=== PATIENT | male | born 1945 | race Caucasian/White ===

== ENCOUNTER 2018-05-22 22:14 | Inpatient (IN) ==
[2018-05-22] MEDS ORDERED: LEVOFLOXACIN INJ 750 MG in PREMIX 1 EACH IV STA (22:47)
[2018-05-22] MEDS ORDERED: VECURONIUM 10 MG VIAL IV ONE (22:57)
[2018-05-22 23:00] LABS: Basophils % 0.1 % (0.0-0.8); Hematocrit 37.9 VOL% (42.0-52.0); Hemoglobin 12.2 GM/DL (14.0-18.0); Immature Granulocytes % 1.3 %; Immature Granulocytes Absolute 0.31 #; Lymphocytes # 1.1 10*3/uL (1.4-4.0); Lymphocytes % 4.7 % (21.2-54.2); Mean Corpuscular HGB Conc 32.2 GM/DL (32-36); Mean Corpuscular Hemoglobin 32 PG (27-34); Mean Corpuscular Volume 100.3 FL (87-102); Mean Platelet Volume 10.5 FL (9.6-12.0); Monocytes # 0.9 10*3/uL (0.11-0.8); Monocytes % 3.6 % (1.7-12.7); Neutrophils # 21.3 10*3/uL (1.4-7.4); Neutrophils % 90.3 % (38.7-73.9); Platelet Count 233 T/CUMM (130-400); Red Blood Count 3.78 MC/CUMM (3.8-5.5); Red Cell Distribution Width 12.5 % (9.3-17.3); White Blood Count 23.6 T/CUMM (4-12)
[2018-05-22] MEDS ORDERED: FUROSEMIDE 40 MG/4 ML VIAL IV STA (23:05)
[2018-05-22 23:08] LABS: INR 1.1; PT Patient Result 11.5 SECS; Partial Thromboplastin Time < 21.0 SECS (0-40)
[2018-05-22 23:13] LABS: ABG Base Excess -3.8 MMOL/L (-2.5-2.5); ABG HCO3 21.2 MMOL/L (20-26); ABG PCO2 43.1 MM HG (35-48); ABG PH 7.321 (7.35-7.45); ABG PO2 81.5 MM HG (80-95); ABG TCO2 19.8 MMOL/L (23-27); Allen Test Positive; Pt O2 Delivery Device Ventilator
[2018-05-22 23:15] LABS: Apearance,Urine CLOUDY (Clear); Bilirubin,Urine Negative (Negative); Blood, Urine Moderate mg/dL (Negative); Calcium Oxalate Crystals,Urine Occasional /HPF (Few); Glucose,Urine (UA) 150 mg/dL (Negative); Granular Casts,Urine 64 /LPF (0-1); Hyaline Casts,Urine 78 /LPF (0-3); Ketones,Urine 5 mg/dL (Negative); Mucus,Urine Few /LPF (Occasional); Nitrite,Urine Negative (Negative); Protein,Urine >=500 MG/DL; RBC,Urine 120 /HPF (0-4); Squamous Epithelial Cell,Urine Occasional /HPF (0-10); Urine Color Amber (Yellow); Urine Specific Gravity 1.019 (1.001-1.035); WBC,Urine 48 /HPF (0-6)
[2018-05-22 23:19] LABS: Albumin 3.5 G/DL (3.4-5.0); Bilirubin,Total 0.8 MG/DL (0.2-1.0); CKMB % 3.1 %; Calcium 8.3 MG/DL (8.5-10.1); Osmolality,Calculated 295.3 MOS/KG (273-304); Potassium 3.7 MMOL/L (3.5-5.1); Total Protein 7.2 G/DL (6.4-8.3)
[2018-05-22 23:20] LABS: Troponin I 0.734 NG/ML (0.00-0.045)
[2018-05-22 23:24] LABS: Barbiturates Screen,Urine Negative (Negative); Benzodiazepines Screen,Urine Positive (Negative); Cannabinoid Screen,Urine Negative (Negative); Opiate Screen,Urine Positive (Negative); Phencyclidine Screen,Urine Negative (Negative)
[2018-05-22 23:53] LABS: Lymphocytes 5 % (20-55); Myelocytes 1 %; Platelet Estimate Normal; Segmented Neutrophils 90 % (50-85); Total Cells Counted 100
[2018-05-23] MEDS ORDERED: hydrALAZINE 20 MG/1 ML VIAL ONE (00:24)
[2018-05-23] MEDS ORDERED: hydrALAZINE 20 MG/1 ML VIAL IV STA (00:31)
[2018-05-23] MEDS ORDERED: ALBUTEROL 2.5 MG/3 ML NEB RESP TX PRN (00:58)
[2018-05-23] MEDS ORDERED: ONDANSETRON 4 MG/2 ML VIAL IV PRN (00:58)
[2018-05-23] MEDS ORDERED: SODIUM CHLORIDE 0.9% 100 ML IV ONE (01:04)
[2018-05-23] MEDS: cefTRIAXone 1,000 MG in SYRINGE 1 EACH IV SCH (01:09)
[2018-05-23] MEDS ORDERED: PANTOPRAZOLE 40 MG VIAL IV ONE (01:42)
[2018-05-23] MEDS: PANTOPRAZOLE 40 MG VIAL IV SCH ×2 (01:52→09:25)
[2018-05-23] MEDS: ENOXAPARIN 80 MG/0.8 ML SYRINGE SUBCUT SCH ×2 (01:52→13:38)
[2018-05-23] MEDS: hydrALAZINE 20 MG/1 ML VIAL IV PRN (02:30)
[2018-05-23] MEDS ORDERED: HEPARIN/NACL 0.9% 2 UNITS/ML 500 ML IV ONE (03:10)
[2018-05-23] MEDS ORDERED: PROPOFOL 1,000 MG/100 ML BOTTLE IV ONE (03:14)
[2018-05-23] MEDS: PROPOFOL 1,000 MG/100 ML BOTTLE IV SCH ×2 (03:20→11:19)
[2018-05-23] MEDS ORDERED: fentaNYL 100 MCG/2 ML VIAL IV ONE (03:24)
[2018-05-23] MEDS ORDERED: CISATRACURIUM 10 MG/5 ML VIAL IV ONE (03:26)
[2018-05-23] MEDS ORDERED: MEPERIDINE 25 MG/1 ML VIAL IV PRN (03:48)
[2018-05-23] MEDS ORDERED: POTASSIUM CHLORIDE RIDER 100 ML IV PRN (03:50)
[2018-05-23] MEDS: CISATRACURIUM 200 MG in SODIUM CHLORIDE 0.9% 180 ML IV SCH ×2 (04:17→16:30)
[2018-05-23] MEDS: INSULIN REGULAR 100 UNIT/ML IV SCH ×5 (04:18→20:35)
[2018-05-23] MEDS: MINERAL OIL/PETROLATUM OPH OINT 3.5 GM TUBE BOTH EYES SCH ×4 (04:18→21:51)
[2018-05-23] MEDS: VANCOMYCIN INJ 1,250 MG in SODIUM CHLORIDE 0.9% 250 ML IV SCH ×2 (04:27→15:45)
[2018-05-23] MEDS: AZITHROMYCIN INJ 500 MG in SODIUM CHLORIDE 0.9% 250 ML IV SCH (04:27)
[2018-05-23 04:39] LABS: Basophils % 0.1 % (0.0-0.8); Hematocrit 42.3 VOL% (42.0-52.0); Hemoglobin 13.7 GM/DL (14.0-18.0); Immature Granulocytes % 0.9 %; Immature Granulocytes Absolute 0.23 #; Lymphocytes # 0.4 10*3/uL (1.4-4.0); Lymphocytes % 1.3 % (21.2-54.2); Mean Corpuscular HGB Conc 32.4 GM/DL (32-36); Mean Corpuscular Hemoglobin 32 PG (27-34); Mean Corpuscular Volume 99.5 FL (87-102); Mean Platelet Volume 11.1 FL (9.6-12.0); Monocytes # 1.2 10*3/uL (0.11-0.8); Monocytes % 4.6 % (1.7-12.7); Neutrophils # 24.5 10*3/uL (1.4-7.4); Neutrophils % 93.1 % (38.7-73.9); Platelet Count 285 T/CUMM (130-400); Red Blood Count 4.25 MC/CUMM (3.8-5.5); Red Cell Distribution Width 12.3 % (9.3-17.3); White Blood Count 26.3 T/CUMM (4-12)
[2018-05-23 04:43] LABS: INR 1.1; PT Patient Result 12.4 SECS; Partial Thromboplastin Time 24.9 SECS (0-40)
[2018-05-23] MEDS: POTASSIUM CHLORIDE RIDER 20 MEQ in PREMIX 1 EACH IV PRN ×5 (04:51→22:32)
[2018-05-23 04:58] LABS: Albumin 3.9 G/DL (3.4-5.0); Bilirubin,Total 0.9 MG/DL (0.2-1.0); Calcium 8.4 MG/DL (8.5-10.1); Osmolality,Calculated 291.3 MOS/KG (273-304); Potassium 3.3 MMOL/L (3.5-5.1); Risk Ratio 3.11; Thyroid Stimulating Hormone 1.21 uIU/ml (0.358-3.74); Total Protein 8.2 G/DL (6.4-8.3)
[2018-05-23] MEDS: fentaNYL INJ 1,250 MCG in SODIUM CHLORIDE 0.9% 225 ML IV PRN ×3 (05:52→21:50)
[2018-05-23 06:45] LABS: Lymphocytes 2 % (20-55); Segmented Neutrophils 95 % (50-85); Total Cells Counted 100
[2018-05-23 06:46] LABS: Ovalocytes 1+; Platelet Estimate Normal
[2018-05-23] MEDS: HEPARIN/NACL 0.9% 2 UNITS/ML 500 ML IV SCH (08:49)
[2018-05-23 08:50] LABS: ABG Base Excess 1.8 MMOL/L (-2.5-2.5); ABG Oxygen Saturation 99.7 % (95-100); ABG PCO2 32.4 MM HG (35-48); ABG PH 7.485 (7.35-7.45); ABG TCO2 20.8 MMOL/L (23-27)
[2018-05-23] MEDS: LISINOPRIL 20 MG TABLET PO SCH (08:51)
[2018-05-23] MEDS: PARoxetine 20 MG TABLET PO SCH (08:51)
[2018-05-23] MEDS: MAGNESIUM OXIDE 400 MG TABLET PO SCH (08:51)
[2018-05-23] MEDS: ASPIRIN EC 81 MG TABLET PO SCH ×4 (08:51→21:55)
[2018-05-23] MEDS: GABAPENTIN 300 MG CAPSULE PO SCH (08:51)
[2018-05-23 09:00] LABS: Basophils % 0.1 % (0.0-0.8); Hematocrit 40.9 VOL% (42.0-52.0); Immature Granulocytes % 0.6 %; Immature Granulocytes Absolute 0.14 #; Lymphocytes # 0.5 10*3/uL (1.4-4.0); Lymphocytes % 2.4 % (21.2-54.2); Mean Corpuscular HGB Conc 34.2 GM/DL (32-36); Mean Corpuscular Hemoglobin 33 PG (27-34); Mean Corpuscular Volume 95.1 FL (87-102); Mean Platelet Volume 10.9 FL (9.6-12.0); Monocytes # 0.7 10*3/uL (0.11-0.8); Monocytes % 3.1 % (1.7-12.7); Neutrophils # 20.3 10*3/uL (1.4-7.4); Neutrophils % 93.8 % (38.7-73.9); Platelet Count 223 T/CUMM (130-400); White Blood Count 21.7 T/CUMM (4-12)
[2018-05-23 09:12] LABS: Blood Urea Nitrogen 21 MG/DL (7-18); CKMB % 5.3 %; Calcium 8.4 MG/DL (8.5-10.1); Glucose 176 MG/DL (74-106); Osmolality,Calculated 281.7 MOS/KG (273-304); Potassium 3.4 MMOL/L (3.5-5.1); Sodium 138 MMOL/L (136-145)
[2018-05-23 09:16] LABS: INR 1.2; PT Patient Result 12.7 SECS; Partial Thromboplastin Time 27.3 SECS (0-40)
[2018-05-23] MEDS: MAGNESIUM SULF RIDER 1 GM in PREMIX 1 EACH IV PRN (09:26)
[2018-05-23] MEDS: FUROSEMIDE 40 MG/4 ML VIAL IV SCH (11:04)
[2018-05-23] MEDS ORDERED: FUROSEMIDE 100 MG/10 ML VIAL IV SCH (12:00)
[2018-05-23] MEDS ORDERED: NOREPINEPHRINE 4 MG/4 ML VIAL IV ONE ×3 (12:23→12:37)
[2018-05-23] MEDS: NOREPINEPHRINE 8 MG in SODIUM CHLORIDE 0.9% 242 ML IV PRN (13:10)
[2018-05-23 13:52] LABS: Lymphocytes 1 % (20-55); Segmented Neutrophils 97 % (50-85); Total Cells Counted 100
[2018-05-23 13:55] LABS: Polychromasia Slight
[2018-05-23 13:57] LABS: Platelet Estimate Normal
[2018-05-23 13:59] LABS: Ovalocytes Slight
[2018-05-23 15:14] LABS: Basophils % 0.1 % (0.0-0.8); Hemoglobin 13.3 GM/DL (14.0-18.0); Immature Granulocytes % 0.8 %; Immature Granulocytes Absolute 0.19 #; Lymphocytes # 0.9 10*3/uL (1.4-4.0); Lymphocytes % 3.6 % (21.2-54.2); Mean Corpuscular HGB Conc 34.1 GM/DL (32-36); Mean Corpuscular Hemoglobin 33 PG (27-34); Mean Corpuscular Volume 95.4 FL (87-102); Monocytes % 4.2 % (1.7-12.7); Neutrophils # 22.2 10*3/uL (1.4-7.4); Neutrophils % 91.3 % (38.7-73.9); Platelet Count 228 T/CUMM (130-400); Red Blood Count 4.09 MC/CUMM (3.8-5.5); Red Cell Distribution Width 11.9 % (9.3-17.3); White Blood Count 24.3 T/CUMM (4-12)
[2018-05-23 15:18] LABS: Apearance,Urine CLEAR (Clear); Bilirubin,Urine Negative (Negative); Blood, Urine Small mg/dL (Negative); Glucose,Urine (UA) Negative (Negative); Granular Casts,Urine 3 /LPF (0-1); Ketones,Urine Negative (Negative); Mucus,Urine Occasional /LPF (Occasional); Nitrite,Urine Negative (Negative); Protein,Urine Negative; RBC,Urine 4 /HPF (0-4); Urine Color Yellow (Yellow); Urine Specific Gravity 1.008 (1.001-1.035); Urine Urobilinogen < 2.0 EU/DL (0.2-1.0); WBC,Urine 2 /HPF (0-6)
[2018-05-23 15:26] LABS: INR 1.1; Partial Thromboplastin Time 29.4 SECS (0-40)
[2018-05-23 15:36] LABS: Blood Urea Nitrogen 21 MG/DL (7-18); CKMB % 7.1 %; Calcium 8.4 MG/DL (8.5-10.1); Glucose 124 MG/DL (74-106); Osmolality,Calculated 284.3 MOS/KG (273-304); Potassium 3.2 MMOL/L (3.5-5.1); Sodium 141 MMOL/L (136-145)
[2018-05-23 15:48] LABS: Platelet Estimate Normal; Segmented Neutrophils 96 % (50-85); Total Cells Counted 100
[2018-05-23 15:49] LABS: Hypochromasia Slight
[2018-05-23 21:32] LABS: Basophils % 0.2 % (0.0-0.8); Hematocrit 36.8 VOL% (42.0-52.0); Hemoglobin 12.5 GM/DL (14.0-18.0); Immature Granulocytes % 0.8 %; Lymphocytes # 0.8 10*3/uL (1.4-4.0); Lymphocytes % 3.2 % (21.2-54.2); Mean Corpuscular Hemoglobin 33 PG (27-34); Mean Corpuscular Volume 95.6 FL (87-102); Mean Platelet Volume 10.8 FL (9.6-12.0); Monocytes % 3.7 % (1.7-12.7); Neutrophils # 23.8 10*3/uL (1.4-7.4); Neutrophils % 92.1 % (38.7-73.9); Platelet Count 192 T/CUMM (130-400); Red Blood Count 3.85 MC/CUMM (3.8-5.5); Red Cell Distribution Width 12.3 % (9.3-17.3); White Blood Count 25.9 T/CUMM (4-12)
[2018-05-23 21:42] LABS: INR 1.1; PT Patient Result 11.9 SECS; Partial Thromboplastin Time 29.2 SECS (0-40)
[2018-05-23 21:52] LABS: Band Neutrophils 2 % (0-10); Lymphocytes 3 % (20-55); Platelet Estimate Normal; Segmented Neutrophils 89 % (50-85)
[2018-05-23 21:53] LABS: Anisocytosis 1+; Hypochromasia 1+
[2018-05-23 21:55] LABS: Total Cells Counted 100
[2018-05-23 22:03] LABS: CKMB % 9.1 %; Calcium 8.5 MG/DL (8.5-10.1); Osmolality,Calculated 289.8 MOS/KG (273-304); Potassium 3.4 MMOL/L (3.5-5.1)
[2018-05-23 22:04] LABS: Troponin I 4.37 NG/ML (0.00-0.045)
[2018-05-24] MEDS: INSULIN REGULAR 100 UNIT/ML IV SCH ×6 (00:23→21:11)
[2018-05-24] MEDS: PROPOFOL 1,000 MG/100 ML BOTTLE IV SCH ×4 (00:44→15:27)
[2018-05-24] MEDS: cefTRIAXone 1,000 MG in SYRINGE 1 EACH IV SCH (01:48)
[2018-05-24] MEDS: FUROSEMIDE 40 MG/4 ML VIAL IV SCH (01:57)
[2018-05-24] MEDS: ENOXAPARIN 80 MG/0.8 ML SYRINGE SUBCUT SCH ×2 (02:01→14:20)
[2018-05-24 03:42] LABS: Basophils # 0.1 10*3/uL (0.0-0.2); Basophils % 0.2 % (0.0-0.8); Hematocrit 36.4 VOL% (42.0-52.0); Hemoglobin 12.3 GM/DL (14.0-18.0); Immature Granulocytes % 0.7 %; Lymphocytes # 0.7 10*3/uL (1.4-4.0); Lymphocytes % 2.4 % (21.2-54.2); Mean Corpuscular HGB Conc 33.8 GM/DL (32-36); Mean Corpuscular Hemoglobin 32 PG (27-34); Mean Corpuscular Volume 95.3 FL (87-102); Mean Platelet Volume 10.9 FL (9.6-12.0); Monocytes # 0.8 10*3/uL (0.11-0.8); Monocytes % 2.7 % (1.7-12.7); Platelet Count 210 T/CUMM (130-400); Red Blood Count 3.82 MC/CUMM (3.8-5.5); Red Cell Distribution Width 12.5 % (9.3-17.3); White Blood Count 28.7 T/CUMM (4-12)
[2018-05-24 03:54] LABS: INR 1.1; PT Patient Result 11.6 SECS; Partial Thromboplastin Time 32.4 SECS (0-40)
[2018-05-24] MEDS: AZITHROMYCIN INJ 500 MG in SODIUM CHLORIDE 0.9% 250 ML IV SCH (03:54)
[2018-05-24] MEDS: CISATRACURIUM 200 MG in SODIUM CHLORIDE 0.9% 180 ML IV SCH ×2 (04:22→15:28)
[2018-05-24 04:32] LABS: Albumin 3.2 G/DL (3.4-5.0); Bilirubin,Total 0.6 MG/DL (0.2-1.0); Calcium 8.4 MG/DL (8.5-10.1); Potassium 3.5 MMOL/L (3.5-5.1); Total Protein 6.8 G/DL (6.4-8.3)
[2018-05-24 04:46] LABS: Lymphocytes 3 % (20-55); Segmented Neutrophils 97 % (50-85)
[2018-05-24 04:47] LABS: Platelet Estimate Adequate; Total Cells Counted 100
[2018-05-24] MEDS: VANCOMYCIN INJ 1,250 MG in SODIUM CHLORIDE 0.9% 250 ML IV SCH ×2 (05:04→16:49)
[2018-05-24] MEDS: fentaNYL INJ 1,250 MCG in SODIUM CHLORIDE 0.9% 225 ML IV PRN ×3 (05:13→23:04)
[2018-05-24 06:10] LABS: ABG Base Excess -1.2 MMOL/L (-2.5-2.5); ABG Oxygen Saturation 98.9 % (95-100); ABG PCO2 32.2 MM HG (35-48); ABG PH 7.453 (7.35-7.45); ABG PO2 158.8 MM HG (80-95)
[2018-05-24] MEDS: GABAPENTIN 300 MG CAPSULE PO SCH (08:44)
[2018-05-24] MEDS: MAGNESIUM OXIDE 400 MG TABLET PO SCH (08:44)
[2018-05-24] MEDS: PARoxetine 20 MG TABLET PO SCH (08:45)
[2018-05-24] MEDS: LISINOPRIL 20 MG TABLET PO SCH (08:45)
[2018-05-24 08:59] LABS: Basophils % 0.1 % (0.0-0.8); Hematocrit 34.7 VOL% (42.0-52.0); Hemoglobin 11.7 GM/DL (14.0-18.0); Immature Granulocytes % 0.9 %; Immature Granulocytes Absolute 0.21 #; Lymphocytes # 0.7 10*3/uL (1.4-4.0); Lymphocytes % 2.8 % (21.2-54.2); Mean Corpuscular HGB Conc 33.7 GM/DL (32-36); Mean Corpuscular Hemoglobin 33 PG (27-34); Mean Corpuscular Volume 96.4 FL (87-102); Mean Platelet Volume 11.2 FL (9.6-12.0); Monocytes # 0.8 10*3/uL (0.11-0.8); Monocytes % 3.5 % (1.7-12.7); Neutrophils # 21.7 10*3/uL (1.4-7.4); Neutrophils % 92.7 % (38.7-73.9); Platelet Count 164 T/CUMM (130-400); Red Cell Distribution Width 12.7 % (9.3-17.3); White Blood Count 23.5 T/CUMM (4-12)
[2018-05-24 09:05] LABS: INR 1.1; PT Patient Result 11.5 SECS; Partial Thromboplastin Time 33.7 SECS (0-40)
[2018-05-24 09:21] LABS: Calcium 8.2 MG/DL (8.5-10.1); Osmolality,Calculated 290.8 MOS/KG (273-304); Potassium 3.5 MMOL/L (3.5-5.1)
[2018-05-24] MEDS: PANTOPRAZOLE 40 MG VIAL IV SCH (09:21)
[2018-05-24] MEDS: MINERAL OIL/PETROLATUM OPH OINT 3.5 GM TUBE BOTH EYES SCH ×3 (09:26→21:12)
[2018-05-24 09:40] LABS: Lymphocytes 2 % (20-55); Segmented Neutrophils 95 % (50-85); Total Cells Counted 100
[2018-05-24 09:41] LABS: Hypochromasia 1+; Platelet Estimate Adequate
[2018-05-24] MEDS: HEPARIN/NACL 0.9% 2 UNITS/ML 500 ML IV SCH (10:44)
[2018-05-24] MEDS: ASPIRIN EC 81 MG TABLET PO SCH ×2 (10:53→11:32)
[2018-05-24 16:17] LABS: Basophils % 0.1 % (0.0-0.8); Hematocrit 34.7 VOL% (42.0-52.0); Hemoglobin 11.7 GM/DL (14.0-18.0); Immature Granulocytes % 0.8 %; Immature Granulocytes Absolute 0.18 #; Lymphocytes # 0.8 10*3/uL (1.4-4.0); Lymphocytes % 3.5 % (21.2-54.2); Mean Corpuscular HGB Conc 33.7 GM/DL (32-36); Mean Corpuscular Hemoglobin 33 PG (27-34); Mean Corpuscular Volume 96.4 FL (87-102); Mean Platelet Volume 11.4 FL (9.6-12.0); Monocytes # 0.8 10*3/uL (0.11-0.8); Monocytes % 3.5 % (1.7-12.7); Neutrophils # 21.8 10*3/uL (1.4-7.4); Neutrophils % 92.1 % (38.7-73.9); Platelet Count 177 T/CUMM (130-400); Red Cell Distribution Width 12.8 % (9.3-17.3); White Blood Count 23.7 T/CUMM (4-12)
[2018-05-24 16:25] LABS: PT Patient Result 10.9 SECS; Partial Thromboplastin Time 32.7 SECS (0-40)
[2018-05-24 16:32] LABS: Calcium 6.9 MG/DL (8.5-10.1); Osmolality,Calculated 292.6 MOS/KG (273-304)
[2018-05-24] MEDS ORDERED: POTASSIUM CHLORIDE RIDER 10 MEQ in PREMIX 1 EACH IV PRN (16:43)
[2018-05-24 16:54] LABS: Lymphocytes 4 % (20-55); Segmented Neutrophils 95 % (50-85); Total Cells Counted 100
[2018-05-24] MEDS: POTASSIUM CHLORIDE RIDER 20 MEQ in PREMIX 1 EACH IV PRN (16:54)
[2018-05-24 16:55] LABS: Platelet Estimate Adequate
[2018-05-24] MEDS: MAGNESIUM SULF RIDER 1 GM in PREMIX 1 EACH IV PRN (17:10)
[2018-05-24 21:12] LABS: Basophils % 0.1 % (0.0-0.8); Hematocrit 33.9 VOL% (42.0-52.0); Hemoglobin 11.3 GM/DL (14.0-18.0); Immature Granulocytes % 0.6 %; Immature Granulocytes Absolute 0.13 #; Lymphocytes # 1.4 10*3/uL (1.4-4.0); Lymphocytes % 6.6 % (21.2-54.2); Mean Corpuscular HGB Conc 33.3 GM/DL (32-36); Mean Corpuscular Hemoglobin 32 PG (27-34); Mean Corpuscular Volume 97.1 FL (87-102); Mean Platelet Volume 11.1 FL (9.6-12.0); Monocytes # 1.2 10*3/uL (0.11-0.8); Monocytes % 5.5 % (1.7-12.7); Neutrophils # 18.5 10*3/uL (1.4-7.4); Neutrophils % 87.2 % (38.7-73.9); Platelet Count 162 T/CUMM (130-400); Red Blood Count 3.49 MC/CUMM (3.8-5.5); White Blood Count 21.2 T/CUMM (4-12)
[2018-05-24 21:30] LABS: Calcium 8.4 MG/DL (8.5-10.1); Osmolality,Calculated 290.8 MOS/KG (273-304); PT Patient Result 10.4 SECS; Partial Thromboplastin Time 32.5 SECS (0-40); Potassium 3.7 MMOL/L (3.5-5.1)
[2018-05-24 21:49] LABS: Lymphocytes 6 % (20-55); Segmented Neutrophils 90 % (50-85); Total Cells Counted 100
[2018-05-24 21:50] LABS: Hypochromasia Slight; Macrocytosis Slight; Platelet Estimate Adequate; Polychromasia Few
[2018-05-25] MEDS: INSULIN REGULAR 100 UNIT/ML IV SCH ×6 (00:30→19:54)
[2018-05-25] MEDS: PROPOFOL 1,000 MG/100 ML BOTTLE IV SCH ×2 (00:39→05:57)
[2018-05-25] MEDS: cefTRIAXone 1,000 MG in SYRINGE 1 EACH IV SCH (01:43)
[2018-05-25] MEDS: ENOXAPARIN 80 MG/0.8 ML SYRINGE SUBCUT SCH ×2 (01:45→14:00)
[2018-05-25] MEDS: hydrALAZINE 20 MG/1 ML VIAL IV PRN (03:40)
[2018-05-25] MEDS: CISATRACURIUM 200 MG in SODIUM CHLORIDE 0.9% 180 ML IV SCH (04:54)
[2018-05-25 04:57] LABS: ABG Base Excess -3.3 MMOL/L (-2.5-2.5); ABG HCO3 21.6 MMOL/L (20-26); ABG Oxygen Saturation 93.9 % (95-100); ABG PCO2 44.8 MM HG (35-48); ABG PH 7.318 (7.35-7.45); ABG PO2 77.8 MM HG (80-95); ABG TCO2 20.5 MMOL/L (23-27)
[2018-05-25] MEDS: AZITHROMYCIN INJ 500 MG in SODIUM CHLORIDE 0.9% 250 ML IV SCH (05:04)
[2018-05-25 05:11] LABS: Basophils % 0.1 % (0.0-0.8); Hematocrit 36.4 VOL% (42.0-52.0); Hemoglobin 11.9 GM/DL (14.0-18.0); Immature Granulocytes % 0.8 %; Immature Granulocytes Absolute 0.17 #; Lymphocytes # 1.3 10*3/uL (1.4-4.0); Lymphocytes % 6.5 % (21.2-54.2); Mean Corpuscular HGB Conc 32.7 GM/DL (32-36); Mean Corpuscular Hemoglobin 32 PG (27-34); Mean Corpuscular Volume 98.9 FL (87-102); Mean Platelet Volume 11.5 FL (9.6-12.0); Monocytes # 0.7 10*3/uL (0.11-0.8); Monocytes % 3.4 % (1.7-12.7); Neutrophils # 18.2 10*3/uL (1.4-7.4); Neutrophils % 89.2 % (38.7-73.9); Platelet Count 217 T/CUMM (130-400); Red Blood Count 3.68 MC/CUMM (3.8-5.5); Red Cell Distribution Width 13.3 % (9.3-17.3); White Blood Count 20.4 T/CUMM (4-12)
[2018-05-25 05:13] LABS: PT Patient Result 10.4 SECS; Partial Thromboplastin Time 31.7 SECS (0-40)
[2018-05-25] MEDS: ACETAMINOPHEN 325 MG TABLET PO PRN (05:38)
[2018-05-25 05:42] LABS: Lymphocytes 3 % (20-55); Platelet Estimate Adequate; Segmented Neutrophils 93 % (50-85)
[2018-05-25 05:43] LABS: Hypochromasia 1+; Macrocytosis Slight; Total Cells Counted 100
[2018-05-25 05:45] LABS: Albumin 3.2 G/DL (3.4-5.0); Bilirubin,Total 0.5 MG/DL (0.2-1.0); Calcium 8.2 MG/DL (8.5-10.1); Osmolality,Calculated 296.6 MOS/KG (273-304); Total Protein 6.4 G/DL (6.4-8.3)
[2018-05-25 05:46] LABS: CKMB % 11.5 %
[2018-05-25] MEDS: VANCOMYCIN INJ 1,250 MG in SODIUM CHLORIDE 0.9% 250 ML IV SCH ×2 (05:55→17:37)
[2018-05-25] MEDS: NOREPINEPHRINE 8 MG in SODIUM CHLORIDE 0.9% 242 ML IV PRN (05:56)
[2018-05-25] MEDS ORDERED: SODIUM CHLORIDE 0.9% 250 ML IV ONE (06:45)
[2018-05-25] MEDS ORDERED: DILTIAZEM 50 MG/10 ML VIAL IV ONE (07:11)
[2018-05-25] MEDS ORDERED: LORazepam 2 MG/1 ML VIAL ONE (07:13)
[2018-05-25] MEDS ORDERED: DILTIAZEM 25 MG/5 ML VIAL IV ONE (07:13)
[2018-05-25] MEDS: LORazepam 2 MG/1 ML VIAL IV PRN (07:15)
[2018-05-25] MEDS ORDERED: dilTIAZem Drip 125 MG/125 ML PREMIX IV SCH (07:30)
[2018-05-25] MEDS ORDERED: PHENYLEPHRINE DRIP 40 MG/250 ML PREMIX IV ONE (07:36)
[2018-05-25] MEDS ORDERED: DIGOXIN 0.5 MG/2 ML AMP IV ONE ×2 (07:36→14:00)
[2018-05-25] MEDS ORDERED: DIGOXIN 0.5 MG/2 ML AMP ONE (07:47)
[2018-05-25] MEDS: PHENYLEPHRINE DRIP 40 MG/250 ML PREMIX IV PRN (07:57)
[2018-05-25] MEDS ORDERED: DEXTROSE 50% 25 GM/50 ML SYRINGE IV ONE (08:16)
[2018-05-25] MEDS: DEXTROSE 50% 25 GM/50 ML SYRINGE IV PRN ×4 (08:30→16:09)
[2018-05-25] MEDS ORDERED: FUROSEMIDE 40 MG/4 ML VIAL IV SCH (09:00)
[2018-05-25] MEDS: PARoxetine 20 MG TABLET PO SCH (10:14)
[2018-05-25] MEDS: GABAPENTIN 300 MG CAPSULE PO SCH (10:14)
[2018-05-25] MEDS: LISINOPRIL 20 MG TABLET PO SCH (10:14)
[2018-05-25] MEDS: MAGNESIUM OXIDE 400 MG TABLET PO SCH (10:14)
[2018-05-25] MEDS: PANTOPRAZOLE 40 MG VIAL IV SCH (10:33)
[2018-05-25] MEDS: ASPIRIN EC 81 MG TABLET PO SCH (10:39)
[2018-05-25] MEDS: MINERAL OIL/PETROLATUM OPH OINT 3.5 GM TUBE BOTH EYES SCH ×3 (10:40→21:06)
[2018-05-25] MEDS: HEPARIN/NACL 0.9% 2 UNITS/ML 500 ML IV SCH (10:50)
[2018-05-25] MEDS: fentaNYL INJ 1,250 MCG in SODIUM CHLORIDE 0.9% 225 ML IV PRN ×2 (10:53→20:30)
[2018-05-25] MEDS: DIGOXIN 0.5 MG/2 ML AMP IV SCH (12:02)
[2018-05-25] MEDS: DEXTROSE 5% NACL 0.9% 1,000 ML IV SCH (16:32)
[2018-05-25] MEDS: METOPROLOL TARTRATE 5 MG/5 ML VIAL IV SCH (17:37)
[2018-05-26] MEDS: PHENYLEPHRINE DRIP 40 MG/250 ML PREMIX IV PRN ×3 (00:01→11:05)
[2018-05-26 00:56] LABS: Albumin 2.8 G/DL (3.4-5.0)
[2018-05-26] MEDS ORDERED: SODIUM CHLORIDE 0.9% 1,000 ML IV ONE (01:18)
[2018-05-26] MEDS: INSULIN REGULAR 100 UNIT/ML IV SCH ×6 (01:49→19:48)
[2018-05-26] MEDS: cefTRIAXone 1,000 MG in SYRINGE 1 EACH IV SCH (02:07)
[2018-05-26] MEDS: ENOXAPARIN 80 MG/0.8 ML SYRINGE SUBCUT SCH ×2 (02:07→14:40)
[2018-05-26] MEDS: AZITHROMYCIN INJ 500 MG in SODIUM CHLORIDE 0.9% 250 ML IV SCH (02:08)
[2018-05-26] MEDS: METOPROLOL TARTRATE 5 MG/5 ML VIAL IV SCH ×2 (04:10→07:13)
[2018-05-26] MEDS: PROPOFOL 1,000 MG/100 ML BOTTLE IV SCH (04:12)
[2018-05-26] MEDS: fentaNYL INJ 1,250 MCG in SODIUM CHLORIDE 0.9% 225 ML IV PRN (04:37)
[2018-05-26] MEDS: CISATRACURIUM 200 MG in SODIUM CHLORIDE 0.9% 180 ML IV SCH (04:37)
[2018-05-26] MEDS: VANCOMYCIN INJ 1,250 MG in SODIUM CHLORIDE 0.9% 250 ML IV SCH (04:57)
[2018-05-26] MEDS: DEXTROSE 5% NACL 0.9% 1,000 ML IV SCH ×2 (05:01→14:23)
[2018-05-26 05:19] LABS: ABG HCO3 15.8 MMOL/L (20-26); ABG Oxygen Saturation 97.8 % (95-100); ABG PCO2 46.1 MM HG (35-48)
[2018-05-26 05:21] LABS: ABG PH 7.182 (7.35-7.45)
[2018-05-26 05:36] LABS: Basophils % 0.1 % (0.0-0.8); Hematocrit 33.9 VOL% (42.0-52.0); Hemoglobin 10.4 GM/DL (14.0-18.0); Immature Granulocytes % 1.6 %; Immature Granulocytes Absolute 0.24 #; Lymphocytes # 0.4 10*3/uL (1.4-4.0); Mean Corpuscular HGB Conc 30.7 GM/DL (32-36); Mean Corpuscular Hemoglobin 33 PG (27-34); Mean Corpuscular Volume 106.3 FL (87-102); Mean Platelet Volume 11.5 FL (9.6-12.0); Monocytes # 1.1 10*3/uL (0.11-0.8); Monocytes % 7.8 % (1.7-12.7); Neutrophils # 12.9 10*3/uL (1.4-7.4); Neutrophils % 87.5 % (38.7-73.9); Platelet Count 178 T/CUMM (130-400); Red Blood Count 3.19 MC/CUMM (3.8-5.5); Red Cell Distribution Width 13.2 % (9.3-17.3); White Blood Count 14.7 T/CUMM (4-12)
[2018-05-26] MEDS ORDERED: SODIUM BICARBONATE 50 MEQ/50 ML SYRINGE IV ONE (05:47)
[2018-05-26 05:56] LABS: Calcium 7.7 MG/DL (8.5-10.1); Osmolality,Calculated 295.8 MOS/KG (273-304); Potassium 5.6 MMOL/L (3.5-5.1)
[2018-05-26 06:00] LABS: Lymphocytes 3 % (20-55); Macrocytosis Slight; Segmented Neutrophils 91 % (50-85); Total Cells Counted 100
[2018-05-26 06:01] LABS: Hypochromasia Slight; Platelet Estimate Adequate
[2018-05-26] MEDS: DEXTROSE 50% 25 GM/50 ML SYRINGE IV PRN ×2 (06:27→07:58)
[2018-05-26] MEDS: GABAPENTIN 300 MG CAPSULE PO SCH (09:41)
[2018-05-26] MEDS: ASPIRIN EC 81 MG TABLET PO SCH (09:41)
[2018-05-26] MEDS: MAGNESIUM OXIDE 400 MG TABLET PO SCH (09:41)
[2018-05-26] MEDS: PARoxetine 20 MG TABLET PO SCH (09:41)
[2018-05-26] MEDS: PANTOPRAZOLE 40 MG VIAL IV SCH (09:42)
[2018-05-26] MEDS: MINERAL OIL/PETROLATUM OPH OINT 3.5 GM TUBE BOTH EYES SCH ×3 (09:42→20:23)
[2018-05-26] MEDS: DIGOXIN 0.5 MG/2 ML AMP IV SCH (09:42)
[2018-05-26 09:47] LABS: ABG Base Excess -9.7 MMOL/L (-2.5-2.5); ABG HCO3 16.8 MMOL/L (20-26); ABG Oxygen Saturation 95.7 % (95-100); ABG PO2 99.7 MM HG (80-95); ABG TCO2 17.8 MMOL/L (23-27)
[2018-05-26 09:50] LABS: ABG PH 7.173 (7.35-7.45)
[2018-05-26] MEDS: DEXTROSE 10% 500 ML IV SCH ×3 (10:35→23:58)
[2018-05-26] MEDS: PHENYLEPHRINE INJ 160 MG in SODIUM CHLORIDE 0.9% 234 ML IV PRN ×2 (11:03→18:40)
[2018-05-26] MEDS: HEPARIN/NACL 0.9% 2 UNITS/ML 500 ML IV SCH (11:18)
[2018-05-26] MEDS ORDERED: PHENYTOIN INJ 1,000 MG in SODIUM CHLORIDE 0.9% 100 ML IV ONE (17:00)
[2018-05-26] MEDS: NOREPINEPHRINE 8 MG in SODIUM CHLORIDE 0.9% 242 ML IV PRN (21:11)
[2018-05-27] MEDS: INSULIN REGULAR 100 UNIT/ML IV SCH ×6 (01:12→22:10)
[2018-05-27] MEDS: PHENYTOIN 100 MG/2 ML VIAL IV SCH ×3 (01:53→17:12)
[2018-05-27] MEDS: cefTRIAXone 1,000 MG in SYRINGE 1 EACH IV SCH (01:55)
[2018-05-27] MEDS: PHENYLEPHRINE INJ 160 MG in SODIUM CHLORIDE 0.9% 234 ML IV PRN ×3 (02:56→19:01)
[2018-05-27] MEDS: ENOXAPARIN 80 MG/0.8 ML SYRINGE SUBCUT SCH ×2 (02:59→14:50)
[2018-05-27] MEDS: PROPOFOL 1,000 MG/100 ML BOTTLE IV SCH (03:26)
[2018-05-27] MEDS: CISATRACURIUM 200 MG in SODIUM CHLORIDE 0.9% 180 ML IV SCH (03:27)
[2018-05-27] MEDS: AZITHROMYCIN INJ 500 MG in SODIUM CHLORIDE 0.9% 250 ML IV SCH (04:00)
[2018-05-27 05:39] LABS: Basophils % 0.2 % (0.0-0.8); Hematocrit 33.7 VOL% (42.0-52.0); Hemoglobin 9.9 GM/DL (14.0-18.0); Immature Granulocytes % 1.4 %; Immature Granulocytes Absolute 0.27 #; Lymphocytes # 0.8 10*3/uL (1.4-4.0); Mean Corpuscular HGB Conc 29.4 GM/DL (32-36); Mean Corpuscular Hemoglobin 33 PG (27-34); Mean Corpuscular Volume 110.5 FL (87-102); Mean Platelet Volume 12.6 FL (9.6-12.0); Monocytes # 1.9 10*3/uL (0.11-0.8); Monocytes % 9.7 % (1.7-12.7); NRBC # 0.17 10*3/uL; Neutrophils # 16.8 10*3/uL (1.4-7.4); Neutrophils % 84.7 % (38.7-73.9); Platelet Count 124 T/CUMM (130-400); Red Blood Count 3.05 MC/CUMM (3.8-5.5); Red Cell Distribution Width 13.1 % (9.3-17.3); White Blood Count 19.8 T/CUMM (4-12)
[2018-05-27 06:10] LABS: Calcium 6.6 MG/DL (8.5-10.1); Osmolality,Calculated 299.4 MOS/KG (273-304)
[2018-05-27 06:13] LABS: Potassium 6.8 MMOL/L (3.5-5.1)
[2018-05-27 06:18] LABS: Lymphocytes 4 % (20-55); Platelet Estimate Decreased; Polychromasia Few; Segmented Neutrophils 94 % (50-85); Total Cells Counted 100
[2018-05-27] MEDS ORDERED: SODIUM POLYSTYRENE SULFATE 15 GM/60 ML BOTTLE PO ONE ×2 (06:20→14:00)
[2018-05-27] MEDS ORDERED: CALCIUM GLUCONATE 2,000 MG in SODIUM CHLORIDE 0.9% 100 ML IV ONE (06:21)
[2018-05-27 06:26] LABS: ABG Base Excess -16.2 MMOL/L (-2.5-2.5); ABG HCO3 12.1 MMOL/L (20-26); ABG Oxygen Saturation 91.3 % (95-100); ABG PCO2 31.6 MM HG (35-48); ABG PO2 78.6 MM HG (80-95); ABG TCO2 10.8 MMOL/L (23-27)
[2018-05-27 06:27] LABS: ABG PH 7.168 (7.35-7.45)
[2018-05-27] MEDS: DEXTROSE 10% 500 ML IV SCH ×3 (07:05→21:58)
[2018-05-27] MEDS: HEPARIN/NACL 0.9% 2 UNITS/ML 500 ML IV SCH (09:19)
[2018-05-27] MEDS: GABAPENTIN 300 MG CAPSULE PO SCH (09:20)
[2018-05-27] MEDS: PARoxetine 20 MG TABLET PO SCH (09:20)
[2018-05-27] MEDS: ASPIRIN EC 81 MG TABLET PO SCH (09:20)
[2018-05-27] MEDS: PANTOPRAZOLE 40 MG VIAL IV SCH (09:21)
[2018-05-27] MEDS: MAGNESIUM OXIDE 400 MG TABLET PO SCH (09:21)
[2018-05-27] MEDS: MINERAL OIL/PETROLATUM OPH OINT 3.5 GM TUBE BOTH EYES SCH ×3 (09:35→22:13)
[2018-05-28] MEDS: INSULIN REGULAR 100 UNIT/ML IV SCH ×6 (01:56→21:37)
[2018-05-28] MEDS: PHENYTOIN 100 MG/2 ML VIAL IV SCH ×3 (02:10→16:58)
[2018-05-28] MEDS: cefTRIAXone 1,000 MG in SYRINGE 1 EACH IV SCH (02:13)
[2018-05-28] MEDS: ENOXAPARIN 80 MG/0.8 ML SYRINGE SUBCUT SCH (02:35)
[2018-05-28 04:28] LABS: ABG Base Excess -7.8 MMOL/L (-2.5-2.5); ABG HCO3 18.1 MMOL/L (20-26); ABG Oxygen Saturation 93.6 % (95-100); ABG PCO2 33.7 MM HG (35-48); ABG PH 7.323 (7.35-7.45); ABG PO2 77.9 MM HG (80-95)
[2018-05-28 04:41] LABS: Basophils % 0.2 % (0.0-0.8); Immature Granulocytes % 2.2 %; Immature Granulocytes Absolute 0.35 #; Lymphocytes # 0.6 10*3/uL (1.4-4.0); Mean Corpuscular HGB Conc 32.3 GM/DL (32-36); Mean Corpuscular Hemoglobin 33 PG (27-34); Mean Corpuscular Volume 100.6 FL (87-102); Mean Platelet Volume 12.6 FL (9.6-12.0); Monocytes # 1.2 10*3/uL (0.11-0.8); Monocytes % 7.6 % (1.7-12.7); NRBC # 1.36 10*3/uL; Neutrophils # 13.8 10*3/uL (1.4-7.4); Platelet Count 115 T/CUMM (130-400); Red Blood Count 3.08 MC/CUMM (3.8-5.5); Red Cell Distribution Width 12.8 % (9.3-17.3); White Blood Count 16.1 T/CUMM (4-12)
[2018-05-28] MEDS: PROPOFOL 1,000 MG/100 ML BOTTLE IV SCH (04:56)
[2018-05-28] MEDS: PHENYLEPHRINE INJ 160 MG in SODIUM CHLORIDE 0.9% 234 ML IV PRN ×2 (04:57→20:30)
[2018-05-28 05:13] LABS: Band Neutrophils 2 % (0-10); Lymphocytes 6 % (20-55); Nucleated Red Blood Cells 13 (0-5); Segmented Neutrophils 88 % (50-85); Total Cells Counted 100
[2018-05-28 05:14] LABS: Hypochromasia 2+; Platelet Estimate Decreased
[2018-05-28] MEDS: DEXTROSE 10% 500 ML IV SCH ×3 (05:15→10:43)
[2018-05-28 05:24] LABS: Albumin 2.2 G/DL (3.4-5.0); Bilirubin,Total 2.6 MG/DL (0.2-1.0); Osmolality,Calculated 305.3 MOS/KG (273-304)
[2018-05-28 05:25] LABS: Calcium 5.7 MG/DL (8.5-10.1)
[2018-05-28] MEDS ORDERED: CALCIUM GLUCONATE 1,000 MG in SODIUM CHLORIDE 0.9% 100 ML IV ONE (05:30)
[2018-05-28] MEDS ORDERED: CALCIUM GLUCONATE 2,000 MG in SODIUM CHLORIDE 0.9% 100 ML IV ONE (09:27)
[2018-05-28] MEDS: PARoxetine 20 MG TABLET PO SCH (10:30)
[2018-05-28] MEDS: ASPIRIN EC 81 MG TABLET PO SCH (10:30)
[2018-05-28] MEDS: GABAPENTIN 300 MG CAPSULE PO SCH (10:31)
[2018-05-28] MEDS: MAGNESIUM OXIDE 400 MG TABLET PO SCH (10:31)
[2018-05-28] MEDS: SODIUM BICARB INJ 50 MEQ in DEXTROSE 5% NACL 0.45% 1,000 ML IV SCH (10:35)
[2018-05-28] MEDS: PANTOPRAZOLE 40 MG VIAL IV SCH (10:36)
[2018-05-28] MEDS: MINERAL OIL/PETROLATUM OPH OINT 3.5 GM TUBE BOTH EYES SCH ×3 (10:36→21:37)
[2018-05-28] MEDS: ACETAMINOPHEN 325 MG TABLET PO PRN (11:01)
[2018-05-28] MEDS: HEPARIN/NACL 0.9% 2 UNITS/ML 500 ML IV SCH (11:57)
[2018-05-28] MEDS: LORazepam 2 MG/1 ML VIAL IV PRN ×2 (12:54→16:14)
[2018-05-28] MEDS ORDERED: ACETAMINOPHEN 325 MG/10.15 ML UDCUP PER TUBE PRN (15:30)
[2018-05-29] MEDS: INSULIN REGULAR 100 UNIT/ML IV SCH ×7 (00:55→23:39)
[2018-05-29] MEDS: LORazepam 2 MG/1 ML VIAL IV PRN ×2 (01:10→07:36)
[2018-05-29] MEDS: SODIUM BICARB INJ 50 MEQ in DEXTROSE 5% NACL 0.45% 1,000 ML IV SCH ×2 (01:10→15:16)
[2018-05-29] MEDS: PHENYTOIN 100 MG/2 ML VIAL IV SCH ×3 (02:24→17:41)
[2018-05-29] MEDS: cefTRIAXone 1,000 MG in SYRINGE 1 EACH IV SCH (02:24)
[2018-05-29] MEDS: PROPOFOL 1,000 MG/100 ML BOTTLE IV SCH (03:15)
[2018-05-29 04:09] LABS: ABG Base Excess -7.2 MMOL/L (-2.5-2.5); ABG HCO3 15.8 MMOL/L (20-26); ABG Oxygen Saturation 97.6 % (95-100); ABG PCO2 24.8 MM HG (35-48); ABG PH 7.423 (7.35-7.45); ABG PO2 116.2 MM HG (80-95); ABG TCO2 16.6 MMOL/L (23-27)
[2018-05-29 04:16] LABS: Basophils % 0.3 % (0.0-0.8); Eosinophils # 0.1 10*3/uL (0.0-0.87); Eosinophils % 0.5 % (0.00-10.9); Hematocrit 25.2 VOL% (42.0-52.0); Hemoglobin 8.2 GM/DL (14.0-18.0); Immature Granulocytes % 1.2 %; Immature Granulocytes Absolute 0.16 #; Lymphocytes % 7.8 % (21.2-54.2); Mean Corpuscular HGB Conc 32.5 GM/DL (32-36); Mean Corpuscular Hemoglobin 32 PG (27-34); Mean Corpuscular Volume 98.1 FL (87-102); Mean Platelet Volume 12.5 FL (9.6-12.0); Monocytes # 1.1 10*3/uL (0.11-0.8); Monocytes % 8.9 % (1.7-12.7); NRBC # 0.74 10*3/uL; Neutrophils # 10.5 10*3/uL (1.4-7.4); Neutrophils % 81.3 % (38.7-73.9); Platelet Count 106 T/CUMM (130-400); Red Blood Count 2.57 MC/CUMM (3.8-5.5); White Blood Count 12.9 T/CUMM (4-12)
[2018-05-29 04:27] LABS: Osmolality,Calculated 319.4 MOS/KG (273-304); Potassium 3.9 MMOL/L (3.5-5.1)
[2018-05-29 05:05] LABS: Calcium 5.4 MG/DL (8.5-10.1)
[2018-05-29 05:09] LABS: Band Neutrophils 2 % (0-10); Eosinophils 1 % (0-10); Hypochromasia 1+; Lymphocytes 6 % (20-55); Nucleated Red Blood Cells 7 (0-5); Ovalocytes Slight; Platelet Estimate Decreased; Segmented Neutrophils 84 % (50-85); Total Cells Counted 100
[2018-05-29] MEDS ORDERED: CALCIUM GLUCONATE 2,000 MG in SODIUM CHLORIDE 0.9% 100 ML IV ONE ×2 (05:27→15:29)
[2018-05-29] MEDS: ASPIRIN EC 81 MG TABLET PO SCH (08:31)
[2018-05-29] MEDS: GABAPENTIN 300 MG CAPSULE PO SCH (08:31)
[2018-05-29] MEDS: MAGNESIUM OXIDE 400 MG TABLET PO SCH (08:31)
[2018-05-29] MEDS: PARoxetine 20 MG TABLET PO SCH (08:31)
[2018-05-29] MEDS: PANTOPRAZOLE 40 MG VIAL IV SCH (08:35)
[2018-05-29] MEDS: MINERAL OIL/PETROLATUM OPH OINT 3.5 GM TUBE BOTH EYES SCH ×3 (08:37→20:38)
[2018-05-29] MEDS: HEPARIN/NACL 0.9% 2 UNITS/ML 500 ML IV SCH (09:52)
[2018-05-29] MEDS: MAGNESIUM SULF RIDER 1 GM in PREMIX 1 EACH IV PRN (17:41)
[2018-05-30] MEDS: PHENYTOIN 100 MG/2 ML VIAL IV SCH ×3 (00:05→16:12)
[2018-05-30] MEDS: cefTRIAXone 1,000 MG in SYRINGE 1 EACH IV SCH (00:07)
[2018-05-30] MEDS: PROPOFOL 1,000 MG/100 ML BOTTLE IV SCH (04:41)
[2018-05-30 04:46] LABS: ABG Base Excess -6.1 MMOL/L (-2.5-2.5); ABG HCO3 17.3 MMOL/L (20-26); ABG PCO2 27.6 MM HG (35-48); ABG PH 7.416 (7.35-7.45); ABG PO2 101.2 MM HG (80-95); ABG TCO2 18.2 MMOL/L (23-27); Allen Test Positive; Pt O2 Delivery Device Ventilator
[2018-05-30 04:57] LABS: Basophils # 0.1 10*3/uL (0.0-0.2); Basophils % 0.3 % (0.0-0.8); Eosinophils # 0.6 10*3/uL (0.0-0.87); Eosinophils % 2.8 % (0.00-10.9); Hematocrit 28.4 VOL% (42.0-52.0); Hemoglobin 9.6 GM/DL (14.0-18.0); Immature Granulocytes % 1.8 %; Immature Granulocytes Absolute 0.41 #; Lymphocytes # 1.2 10*3/uL (1.4-4.0); Mean Corpuscular HGB Conc 33.8 GM/DL (32-36); Mean Corpuscular Hemoglobin 32 PG (27-34); Mean Corpuscular Volume 95.3 FL (87-102); Mean Platelet Volume 11.8 FL (9.6-12.0); Monocytes # 1.7 10*3/uL (0.11-0.8); Monocytes % 7.3 % (1.7-12.7); NRBC # 0.27 10*3/uL; Neutrophils # 19.1 10*3/uL (1.4-7.4); Neutrophils % 82.8 % (38.7-73.9); Red Blood Count 2.98 MC/CUMM (3.8-5.5); Red Cell Distribution Width 12.6 % (9.3-17.3); White Blood Count 23.1 T/CUMM (4-12)
[2018-05-30 04:58] LABS: Platelet Count 91 T/CUMM (130-400)
[2018-05-30 05:11] LABS: Calcium 6.6 MG/DL (8.5-10.1); Osmolality,Calculated 325.7 MOS/KG (273-304)
[2018-05-30] MEDS: INSULIN REGULAR 100 UNIT/ML IV SCH ×5 (05:34→21:04)
[2018-05-30 05:53] LABS: Eosinophils 1 % (0-10); Platelet Estimate Decreased; Polychromasia Few; Segmented Neutrophils 97 % (50-85); Total Cells Counted 100
[2018-05-30] MEDS: SODIUM BICARB INJ 50 MEQ in DEXTROSE 5% NACL 0.45% 1,000 ML IV SCH (06:16)
[2018-05-30] MEDS: PANTOPRAZOLE 40 MG VIAL IV SCH (08:12)
[2018-05-30] MEDS: ASPIRIN EC 81 MG TABLET PO SCH (08:15)
[2018-05-30] MEDS: PARoxetine 20 MG TABLET PO SCH (08:15)
[2018-05-30] MEDS: MAGNESIUM OXIDE 400 MG TABLET PO SCH (08:15)
[2018-05-30] MEDS: GABAPENTIN 300 MG CAPSULE PO SCH (08:15)
[2018-05-30] MEDS: MINERAL OIL/PETROLATUM OPH OINT 3.5 GM TUBE BOTH EYES SCH ×3 (08:20→21:37)
[2018-05-30] MEDS: HEPARIN/NACL 0.9% 2 UNITS/ML 500 ML IV SCH (09:53)
[2018-05-30] MEDS: SODIUM BICARB INJ 100 MEQ in DEXTROSE 5% NACL 0.45% 1,000 ML IV SCH (10:01)
[2018-05-31] MEDS: PHENYTOIN 100 MG/2 ML VIAL IV SCH ×2 (00:55→08:27)
[2018-05-31] MEDS: cefTRIAXone 1,000 MG in SYRINGE 1 EACH IV SCH (00:55)
[2018-05-31] MEDS: INSULIN REGULAR 100 UNIT/ML IV SCH ×4 (00:55→11:12)
[2018-05-31] MEDS: SODIUM BICARB INJ 100 MEQ in DEXTROSE 5% NACL 0.45% 1,000 ML IV SCH (00:55)
[2018-05-31] MEDS: LORazepam 2 MG/1 ML VIAL IV PRN ×3 (00:56→08:09)
[2018-05-31] MEDS: PROPOFOL 1,000 MG/100 ML BOTTLE IV SCH ×2 (02:36→08:09)
[2018-05-31 05:31] LABS: ABG Base Excess -4.9 MMOL/L (-2.5-2.5); ABG HCO3 18.2 MMOL/L (20-26); ABG Oxygen Saturation 98.8 % (95-100); ABG PCO2 27.5 MM HG (35-48); ABG PH 7.438 (7.35-7.45); ABG PO2 148.5 MM HG (80-95)
[2018-05-31 05:44] LABS: Basophils # 0.1 10*3/uL (0.0-0.2); Basophils % 0.4 % (0.0-0.8); Eosinophils # 0.6 10*3/uL (0.0-0.87); Eosinophils % 2.3 % (0.00-10.9); Hemoglobin 9.3 GM/DL (14.0-18.0); Immature Granulocytes % 2.5 %; Lymphocytes % 4.3 % (21.2-54.2); Mean Corpuscular HGB Conc 34.4 GM/DL (32-36); Mean Corpuscular Hemoglobin 32 PG (27-34); Mean Corpuscular Volume 93.8 FL (87-102); Mean Platelet Volume 11.6 FL (9.6-12.0); Monocytes % 8.1 % (1.7-12.7); NRBC # 0.24 10*3/uL; Neutrophils % 82.4 % (38.7-73.9); Red Blood Count 2.88 MC/CUMM (3.8-5.5); Red Cell Distribution Width 12.7 % (9.3-17.3); White Blood Count 24.2 T/CUMM (4-12)
[2018-05-31 05:45] LABS: Platelet Count 74 T/CUMM (130-400)
[2018-05-31 05:59] LABS: Albumin 1.5 G/DL (3.4-5.0); Bilirubin,Total 4.2 MG/DL (0.2-1.0); Calcium 6.6 MG/DL (8.5-10.1); Osmolality,Calculated 333.6 MOS/KG (273-304); Potassium 4.3 MMOL/L (3.5-5.1)
[2018-05-31 06:07] LABS: Eosinophils 4 % (0-10); Hypochromasia 1+; Lymphocytes 1 % (20-55); Ovalocytes Slight; Platelet Estimate Decreased; Segmented Neutrophils 91 % (50-85); Total Cells Counted 100
[2018-05-31] MEDS: PANTOPRAZOLE 40 MG VIAL IV SCH (08:27)
[2018-05-31] MEDS: MAGNESIUM OXIDE 400 MG TABLET PO SCH (08:28)
[2018-05-31] MEDS: PARoxetine 20 MG TABLET PO SCH (08:28)
[2018-05-31] MEDS: GABAPENTIN 300 MG CAPSULE PO SCH (08:28)
[2018-05-31] MEDS: MINERAL OIL/PETROLATUM OPH OINT 3.5 GM TUBE BOTH EYES SCH (08:28)
[2018-05-31] MEDS ORDERED: METHYL SALICYLATE 60 ML BOTTLE TOP PRN (08:38)
[2018-05-31] MEDS ORDERED: MORPHINE 4 MG/1 ML VIAL IV PRN ×2 (08:54→10:47)
[2018-05-31] MEDS: MORPHINE 4 MG/1 ML VIAL IV PRN ×3 (10:30→12:03)
[2018-05-31] MEDS ORDERED: LORazepam 2 MG/1 ML VIAL IV PRN (10:47)
[2018-05-31 11:30] VITALS: BP 64/31
== END 2018-05-31 12:13 | disposition expired | DRG 291 ==
LOC: EDBD → EDUNIT# → N.ED 22:14 → SUATTDRO 05-23 00:45 → N.EDINP 05-23 00:45 → N.ICU 05-23 02:41
PROVIDERS: ADMIT Hospitalist; ATTEND Family Medicine